=== PATIENT | male | born 1955 | race Caucasian/White ===

== ENCOUNTER 2018-11-14 13:00 | Outpatient (CLI) | payer MEDICARE, OTHER ==
[~2018-11-14 13:00] MED LIST: ACET-73 PO; ALLO300T2 PO; Colchicine PO; DICL100G16 TP; DOCU100C36 PO; FLUT9.9S BNOSTRILS; GABA300C PO; INDO25CA49 PO; LIDO30CR47 TP; MAGN400O6 PO; POLY15DR40 EACHEYE
== END 2018-11-14 23:59 | disposition home health service (06) ==
LOC: WOU 13:00
PROVIDERS: ATTEND Surgery
DX: S61.411A Laceration without foreign body of right hand, initial encounter (principal); X58.XXXA Exposure to other specified factors, initial encounter; Y92.89 Other specified places as the place of occurrence of the external cause; G89.4 Chronic pain syndrome; E78.5 Hyperlipidemia, unspecified; I10 Essential (primary) hypertension; G40.909 Epilepsy, unspecified, not intractable, without status epilepticus; Z79.899 Other long term (current) drug therapy; Z79.01 Long term (current) use of anticoagulants; Z86.73 Personal history of transient ischemic attack (TIA), and cerebral infarction without residual deficits; H54.8 Legal blindness, as defined in USA
CPT/HCPCS: 11043; A6402